=== PATIENT | male | born 1960 | race Caucasian/White ===

== ENCOUNTER → 2022-12-08 | Outpatient (CLI) | payer OTHER ==
[~2022-12-08] MED LIST: CRS350T PO; HYDR-3720 PO; IBUPROFEN; [UNRECOGNIZED DRUG - REMARK]
--- NOTE | 2022-12-08 10:20 | Diagnostic Imaging Report ---
PROCEDURE: US Abdomen, limited. TECHNIQUE: Multiple realtime grayscale images were obtained over the abdomen in various projections. INDICATION: Abnormal liver function. Liver is mildly enlarged at 18.9 cm. There is increased echogenicity throughout the liver consistent with hepatic steatosis. The portal vein is patent and shows normal direction of flow. No discrete liver mass is identified. The gallbladder is without stones or sludge. No definite wall thickening or biliary ductal dilatation is seen. The pancreas was obscured by bowel gas. Aorta is nonaneurysmal. IVC is patent. Right kidney is without calculi or hydronephrosis. In addition, right lower quadrant was evaluated at the area of patient's pain. No underlying mass or fluid collection is detected. IMPRESSION: 1. Hepatomegaly and hepatic steatosis. 2. No evidence of cholelithiasis or acute cholecystitis. Dictated by: Dictated on workstation # [id number]
== END ==
LOC: RAD 07:07
PROVIDERS: ATTEND Nurse Practitioner Family
DX: R16.0 Hepatomegaly, not elsewhere classified (principal)
CPT/HCPCS: 76705